=== PATIENT | male | born 1965 | race Caucasian/White ===

== ENCOUNTER 2018-05-20 19:53 | Emergency (ER) | payer BC, OTHER ==
[~2018-05-20] VITALS: Ht 182.9 cm; Wt 108.5 kg
[2018-05-20 19:56] VITALS: TEMP 36.9; Ht 182.9 cm; Wt 108.5 kg
[2018-05-20] MEDS ORDERED: GARL500C5 PO (20:26)
[2018-05-20] MEDS ORDERED: ASCO500T3 PO (20:26)
[2018-05-20] MEDS ORDERED: OMEP20TA PO (20:26)
[2018-05-20] MEDS ORDERED: SEPTRA DS HOME PACK 1 EA VIAL PO ONE (20:45)
[2018-05-20] MEDS ORDERED: LIDOCAINE 1% BUFFERED INJ 20 ML VIAL INFIL ONE (20:45)
[2018-05-20] MEDS ORDERED: CEPHALEXIN 500MG HOME PACK 1 EA BTL PO ONE (20:45)
[2018-05-20] MEDS ORDERED: COEN75CA PO (21:00)
[2018-05-20 21:27] VITALS: BP 161/104; PULSE 86; O2SAT 97
[2018-05-20] MEDS ORDERED: SULF800T23 PO (21:48)
[2018-05-20] MEDS ORDERED: CEPH500C PO (21:48)
--- NOTE | 2018-05-21 00:21 | EMERGENCY ROOM VISIT NOTE ---
History Report prepared by Rebeka: Popeye Jay Under the Supervision of: Dr. Tony Felix M.D. First contact with patient: 20:18 Chief Complaint: OTHER COMPLAINT Stated Complaint: ABSCESS ON UPPER LEG History of Present Illness The patient is a 52 year old male who presents to the Emergency Room with complaints of a constant abscess in his left upper leg starting a couple days ago. He reports a history of infection in that area, but states that this one is deeper than normal. He reports he had a very similar one about 3 years ago and had surgery for it. He states that he feels like there is always something there in his left upper leg. The patient notes a current cold and states that he took 6 DayQuil and 2 Aleve today. He denies fevers or chills, but notes that his vision is "kind of screwed up." The patient states that he does not have any insurance and is requesting to only have the area lanced and given medications. He does not want any imaging or blood work to be performed. He is aware of the limitations with this approach. Pt denies LOC, headache, fevers, chills, diaphoresis, neck pain, chest pain, breathing difficulties, nausea, vomiting, abdominal pain, back pain, melena, hematochezia, urinary symptoms, numbness, weakness, lymphadenopathy, rash, or other complaints. Source of History: patient Onset: a couple days ago Position: leg (left upper) Quality: other (abscess) Timing: constant Note: vision is "kind of screwed up" Review of Systems See HPI for pertinent positives and negatives. A total of ten systems were reviewed and were otherwise negative. Past Medical & Surgical Medical Problems: (1) HTN (hypertension) Family History Diabetes mellitus Heart disease Hypertension Social History Smoking Status: Current Every Day Smoker Alcohol Use: occasionally Marital Status: Housing Status: lives with significant other Occupation Status: employed Current/Historical Medications Scheduled Ascorbic Acid (Vitamin C), 500 MG PO DAILY Cephalexin Monohydrate (Keflex), 500 MG PO QID Coenzyme Q10 (Ubidecarenone) (Co Q-10), 1 CAP PO DAILY Garlic (Garlic), 500 MG PO DAILY Omeprazole (Omeprazole), 20 MG PO DAILY Sulfa/Trimethoprim (Bactrim Ds 800MG/160MG), 1 TAB PO BID Allergies Coded Allergies: No Known Allergies (Unverified , 05/19/14) Physical Exam Vital Signs Date Time Temp Pulse Resp B/P (MAP) Pulse Ox O2 Delivery O2 Flow Rate FiO2 05/20/18 21:27 86 16 161/104 97 Room Air 05/20/18 19:56 36.9 97 18 174/106 97 Room Air Physical Exam GENERAL: Awake, alert, uncomfortable-appearing, in no distress HENT: Normocephalic, atraumatic. Oropharynx unremarkable. EYES: Normal conjunctiva. Sclera non-icteric. NECK: Supple. No nuchal rigidity. FROM. No masses. RESPIRATORY: Clear to auscultation. No wheezes. No rales. Normal respiratory effort. CARDIAC: Normal rate. Normal rhythm. No murmurs. No rubs. Extremities warm and well perfused. Pulses equal. No JVD. GI: Soft, non-distended. No tenderness to palpation. No rebound or guarding. No masses. RECTAL: No perianal abscess is present. No fistula. No fissures or swelling present. MUSCULOSKELETAL: Atraumatic. Chest examination reveals no tenderness. The back is symmetrical on inspection without obvious abnormality. There is no CVA tenderness to palpation. No joint edema. LOWER EXTREMITIES: No edema. No discoloration. Upper leg appears normal. NEURO: Normal sensorium. No sensory or motor deficits noted. SKIN: No other rash or jaundice noted. GENITOURINARY: Scrotum and penis appear normal. 4 x 3 cm area of tenderness, induration, and fluctuance in the perineum with no crepitus. Medical Decision & Procedures Medications Administered Medications (Trade) Dose Ordered Sig/Kadie Route Start Time Stop Time Status Last Admin Dose Admin Cephalexin Monohydrate (Keflex 500MG Home Pack) 1 homepack NOW ONCE PO 05/20/18 20:45 05/20/18 20:46 DC 05/20/18 21:44 1 HOMEPACK Trimethoprim/ Sulfamethoxazole (Sulfameth/ Trimeth Ds 800/ 160MG Home Pack) 1 homepack UD ONCE PO 05/20/18 20:45 05/20/18 20:46 DC 05/20/18 21:44 1 HOMEPACK Lidocaine HCl (Buffered Lidocaine 1% Inj) 20 ml ONE ONCE INFIL 05/20/18 20:45 05/20/18 20:46 DC 05/20/18 20:42 20 ML Procedure INCISION & DRAINAGE: Indication: Abscess. Verbal consent was obtained after the risks and benefits were explained, including but not limited to bleeding, scarring, infection, pain, and bone/joint /nerve damage. At this time, the risks of the procedure are less than the risks of NOT performing the procedure. A time out was taken and the correct patient and site identified. The skin was prepped with betadine and a sterile field set. The wound was anesthetized with 3 ml of 1% lidocaine without epinephrine. The abscess cavity was entered with a number 11 blade and bloody and mild purulent material expressed. Irrigated. The wound was explored for foreign bodies and none found. No injury to underlying structures such as the urethra, scrotum, or rectum. No obvious fistulas. Debridement was not performed. Packing placed and a sterile dressing applied. Detailed wound care instructions and signs and symptoms of worsening infection reviewed with the patient. No complications and the patient tolerated the procedure well. ED Course 2020: The patient was evaluated in room A12B. A complete history and physical exam was performed. 2044: Ordered Lidocaine HCl 20 ml INFIL, Trimethoprim/Sulfamethoxazole 1 homepack PO, Cephalexin Monohydrate 1 homepack PO 2129: I reevaluated the patient. Discussed results and discharge instructions: He verbalized understanding and agreement. The patient is ready for discharge. Medical Decision Prior records reviewed and summarized as above. The patient had a moderate sized abscess of the perineum drained. Culture revealed a Peptostreptococcus species. At that time he was treated with IV Mefoxin and Augmentin. The patient states that this episode is not nearly as significant as that episode. Triage Nursing notes reviewed and agree them. Additional history obtained from the family. The patient's history was concerning for swelling and redness of the perineum. Differential diagnosis: Etiologies such as cellulitis, abscess, MRSA infection, necrotizing fasciitis, dermatitis, as well as others were entertained. Physical examination: The physical examination as above. Small tender fluctuant area. No drainage. No signs of crepitus. Scrotum was not involved. No obvious connection to the rectum or anus. ER treatment provided: On reassessment the patient felt better. Diagnostics interpreted by me: The labs revealed gram-positive cocci and Gram stain. Culture pending. I did discuss the significant importance of a culture of the wound from the procedure and the patient did agree to this. Imaging studies: Declined by the patient. The patient underwent an incision and drainage for a very small abscess of the perineum with some mild surrounding cellulitis. He had a culture performed. The patient was placed on Bactrim and Keflex. He did not want any additional laboratory testing or imaging performed. He understands the risks and benefits to this approach. I will try to respect his wishes and treat him conservatively. He agrees to come back to emergency department immediately if he worsens in any way. He will call back to the emergency department in 72 hours for culture results if he does not hear from us sooner. He had elevated blood pressures. He was counseled on this. He does not follow regularly with a primary physician. He was also counseled on this. He was given information for follow-up by case management for primary care. I gave my usual and customary discussion regarding this issue. By the evaluation outlined above other emergent etiologies such as those listed in the differential, as well as others, were deemed relatively unlikely. The patient was educated about the findings as listed above. All questions were answered and the patient was pleased with the treatment. Return instructions were outlined and the patient was discharged in stable condition. The patient was referred to primary care for follow-up for a recheck of the current condition. Medication Reconcilliation Current Medication List: was personally reviewed by me Blood Pressure Screening Patient's blood pressure: Elevated blood pressure Blood pressure disposition: Referred to PCP Impression Primary Impression: Perineal abscess Scribe Attestation The scribe's documentation has been prepared under my direction and personally reviewed by me in its entirety. I confirm that the note above accurately reflects all work, treatment, procedures, and medical decision making performed by me. Departure Information Dispostion Home / Self-Care Prescriptions Sulfa/Trimethoprim (Bactrim Ds 800MG/160MG) Tab 1 TAB PO BID, #18 TAB Prov: Tony Felix MD 05/20/18 Cephalexin Monohydrate (Keflex) 500 Mg Cap 500 MG PO QID, #36 CAP Prov: Tony Felix MD 05/20/18 Referrals Desi Gomez M.D. (PCP) Forms HOME CARE DOCUMENTATION FORM, IMPORTANT VISIT INFORMATION, WORK / SCHOOL INSTRUCTIONS Patient Instructions My [facility] Additional Instructions Cephalexin(Keflex) 500mg: Take one pill four times daily for 10 days for your skin infection. All antibiotics can cause diarrhea. If this occurs and you feel worse or it does not resolve in 1-2 days follow up with your doctor or return to the Emergency Department as this could be signs of serious underlying problems. Any medication can cause an allergic reaction, stop the pills immediately and return to the ER for rash, hives, breathing difficulties, or swelling. Trimethoprim-Sulfamethoxazole(Bactrim DS): Take one pill twice daily for 10 days for your skin infection. All antibiotics can cause diarrhea. If this occurs and you feel worse or it does not resolve in 1-2 days follow up with your doctor or return to the Emergency Department as this could be signs of serious underlying problems. Any medication can cause an allergic reaction, stop the pills immediately and return to the ER for rash, hives, breathing difficulties, or swelling. Ibuprofen(Motrin, Advil) may be used for fever or pain. Use 600mg every six hours as needed. Take with food. Avoid using more than 2400mg in a 24 hour period. Do not use 2400mg per day for more than three consecutive days without physician direction. Prolonged inappropriate use can lead to stomach upset or ulcers. (AND/OR) Acetaminophen(Tylenol) may be used for fever or pain. Use 1000mg every six hours as needed. Avoid using more than 4000mg in a 24 hour period. Change the dressing tomorrow and remove the packing. If the gauze becomes dirty or wet change as needed. Try to leave the packing in place until tomorrow. The packing can be removed very simply by pulling on the small wick under your scrotum. Rest and drink plenty of fluids. Continue current medications. Return to the ER for severe pain, persistent fevers, spreading redness, difficulty breathing, chest pain, headache, passing out, or any worsening of your condition. Follow up with a primary physician next week for a recheck of the current condition, establishment of primary care, and monitoring of your blood pressure. Call back to the emergency department on Thursday for results of your wound culture. The number is [phone]. Ask for the charge nurse.
== END 2018-05-20 21:55 | disposition home or self-care (01) ==
LOC: C.EDB 19:54 → C.EDA 21:55
DX: L02.215 Cutaneous abscess of perineum (principal); I10 Essential (primary) hypertension; F17.210 Nicotine dependence, cigarettes, uncomplicated; Z83.3 Family history of diabetes mellitus; Z82.49 Family history of ischemic heart disease and other diseases of the circulatory system; Z79.899 Other long term (current) drug therapy

== ENCOUNTER 2023-09-04 22:34 | Inpatient (IN) ==
[2023-09-04] MEDS ORDERED: SODIUM CHLORIDE 0.9% 500 ML IV STA (22:38)
[2023-09-04] MEDS ORDERED: ALUMINUM/MAGNESIUM SUSP 30 ML UDC PO STA (22:42)
--- NOTE | 2023-09-04 22:48 | Emergency Department Note ---
Impression & Plan Acute non-ST elevation myocardial infarction (NSTEMI), Chest pain, Abnormal EKG ED Provider Note NAME: JOSE DEE AGE: 57 SEX: M : 1965 ARRIVES VIA: Ambulance INFORMANT: Patient, EMS ED PROVIDER(S): Hossein Garcia DO CHIEF COMPLAINT: Chest pain HPI: The patient is a 57-year-old male who presented to the emergency department by ambulance for an evaluation of chest discomfort. The patient states he was moving heavy oxygen containers this morning. Around 10:30 AM he started having discomfort in his chest. He has a history of GERD and initially thought it was related to that. He took antacids without relief of his symptoms. This evening his symptoms continue to worsen so he called 911. I did receive a prehospital notification. The patient was treated with aspirin prior to arrival. He denies having any shortness of breath. He denies having any leg swelling. He denies having any back pain. ROS: See above HPI for pertinent positives & negatives. A total of 10 systems reviewed and were otherwise negative. PAST MEDICAL HISTORY: See Below PAST SURGICAL HISTORY: See Below FAMILY HISTORY: See Below SOCIAL HISTORY: See Below HOME MEDICATIONS: See Below ALLERGIES: See Below VITALS: See Below PHYSICAL EXAMINATION: GENERAL: Patient is awake alert in no acute distress patient is resting comfortably and showing no signs of anxiety EYES: The conjunctivae are clear. The pupils are round and reactive. EARS, NOSE, MOUTH AND THROAT: The nose is without any evidence of any deformity. NECK: The neck is nontender and supple. RESPIRATORY: Normal respiratory effort is noted there is no evidence of wheezing rhonchi or rales CARDIOVASCULAR: Regular rate and rhythm noted there no murmurs rubs or gallops normal S1 normal S2. GASTROINTESTINAL: The abdomen is soft. Abdomen is nontender. MUSCULOSKELETAL/EXTREMITIES: There is no evidence of gross deformity full range of motion is noted in the hips and shoulders. SKIN: There is no obvious evidence of any rash. There are no petechiae, pallor or cyanosis noted. NEUROLOGIC: Patient is awake alert and oriented x3. Gait was steady. MEDICAL DECISION MAKING: The patient is a 57-year-old male who presented to the emergency department by ambulance for an evaluation of chest pain. The patient describes anterior chest pain which has been ongoing throughout the day. The patient had no back pain. Pulses were symmetric in both wrist. The patient does have a history of hypertension. Patient also had a history of GERD and thought that this could be secondary to his GERD. He was found to have an abnormal EKG by prehospital personnel. He had no significant change in his EKG upon arrival to the emergency department. He was treated with aspirin prior to arrival. He was also started on heparin in the emergency department for an elevated troponin. The patient was improved on reevaluation. The case was discussed with the [facility] hospitalist. They have agreed to evaluate the patient in the emergency department for further management and disposition. Triage Nursing notes reviewed. Prior medical records reviewed Vital Signs: reviewed and remarkable for elevated blood pressure. Differential diagnosis: Cardiac ischemia, aortic dissection, pulmonary embolism, pneumothorax, pneumonia, pericarditis, myocarditis, esophageal rupture, GERD, cholecystitis, pancreatitis, musculoskeletal, as well as other pathologies. ER treatment provided: See below Diagnostics interpreted by me: ECG: EKG was obtained in the emergency department. My interpretation is normal sinus rhythm at 81 bpm. There is no ectopy. Inferior anterior and low lateral ST depressions were noted. Early transition was noted. No previous tracing was available in our system. Prehospital EKG was obtained. I was able to evaluate the prehospital EKG as I was consulted for medical command. My interpretation is normal sinus rhythm at 88 beats per minute. There is no ectopy. Early transition was noted. ST depressions were noted in the inferior anterior and low lateral leads. This compares similar to the tracing obtained in the emergency department. Cardiac Monitoring: An order was placed for continuous cardiac monitoring. The monitor shows a rate of 87 bpm with sinus rhythm. Laboratory studies: As stated above and show below. Imaging studies: See below. Radiographic imaging was reviewed by myself Consultation(s): Dr Delgadillo was notified about the patient. He will evaluate the patient in the emergency department. ED COURSE: Procedures: none Critical Care: I have personally spent greater than 45 minutes of critical care time in the direct management of this patient. This includes bedside care, interpretation of diagnostic studies, and testing, discussion with consultants, patient, and family members, and other required patient management activities. This 45 minutes is in excess of all separately billable procedures. Past Med/Surg History Medical History HTN (hypertension) Acid reflux Social History Smoking Status: Current every day smoker Tobacco Type: Cigarettes Preferred Language: American Feels Safe at Home: Yes Allergies Allergies Allergy/AdvReac Type Severity Reaction Status Date / Time No Known Allergies Allergy Verified 09/04/23 23:07 Home Meds Home Medications Medication Instructions Recorded Confirmed amlodipine 5 mg tablet 5 mg PO DAILY 09/04/23 09/04/23 ascorbic acid (vitamin C) 500 mg 500 mg PO DAILY 09/04/23 09/04/23 tablet (Vitamin C) biotin 10 mg tablet 10 mg PO DAILY 09/04/23 09/04/23 garlic 1,000 mg capsule 1,000 mg PO DAILY 09/04/23 09/04/23 omeprazole 20 mg capsule,delayed 20 mg PO DAILY 09/04/23 09/04/23 release Results & Data (ED) Vital Signs Vital Signs - 24 hr 09/04/23 22:45 09/04/23 22:50 09/04/23 22:52 Temperature 36.5 C Temperature Source Oral Pulse Rate 87 79 Pulse Rate [Radial] Respiratory Rate 15 Respiratory Effort / Characteristics Non-Labored Spontaneous Respiratory Depth Normal Respiratory Pattern Regular Blood Pressure 170/116 H Blood Pressure [Right Arm] Blood Pressure Mean 134 Blood Pressure Mean [Right Arm] Blood Pressure Position Semi-fowlers Pulse Oximetry 97 94 Oxygen Delivery Method Room Air Room Air Sepsis Recent Fever Within 48 Hours No Sepsis New/Unexplained Change in Mental Status N/A Sepsis Action Taken by Nursing No Action Required 09/04/23 22:52 09/04/23 23:57 Temperature Temperature Source Pulse Rate 80 Pulse Rate [Radial] 87 Respiratory Rate 22 17 Respiratory Effort / Characteristics Non-Labored Spontaneous Respiratory Depth Normal Respiratory Pattern Regular Blood Pressure Blood Pressure [Right Arm] 170/100 H Blood Pressure Mean Blood Pressure Mean [Right Arm] 123 Blood Pressure Position Pulse Oximetry 94 100 Oxygen Delivery Method Room Air Room Air Sepsis Recent Fever Within 48 Hours Sepsis New/Unexplained Change in Mental Status Sepsis Action Taken by Half-Way Medications Current Medication List: was personally reviewed by me Laboratory Data Attestation: I reviewed the patient's lab results. 09/04/23 22:50 09/04/23 22:50 Lab Results 09/04/23 Range/Units 22:50 WBC 10.95 H (4.8-10.8) K/ul RBC 5.41 (4.70-6.10) M/uL Hgb 16.1 (14.0-18.0) g/dl Hct 48.5 (42.0-52.0) % MCV 89.6 (80.0-100.0) fL MCH 29.8 (25.0-34.0) pg MCHC 33.2 (32.0-36.0) g/dL RDW Std Deviation 44.6 (36.4-46.3) fL RDW Coeff of Bhakti 13.7 (11.5-14.5) % Plt Count 257 (130-400) K/uL MPV 9.4 (9.4-12.4) fL Immature Gran % (Auto) 1.1 % Neut % (Auto) 66.5 % Lymph % (Auto) 20.2 % [place] % (Auto) 9.1 % Eos % (Auto) 2.2 % Baso % (Auto) 0.9 % Neut # (Auto) 7.28 H (1.40-6.50) K/uL Lymph # (Auto) 2.21 (1.20-3.40) K/uL [place] # (Auto) 1.00 H (0.11-0.59) K/uL Eos # (Auto) 0.24 (0.00-0.50) K/uL Baso # (Auto) 0.10 (0.00-0.20) K/uL Immature Gran # (Auto) 0.12 (0.01-0.20) K/uL PT 10.4 (9.0-12.0) Seconds INR 0.9 (0.9-1.1) APTT 27.3 (21.0-31.0) Seconds PTT Ratio 1.0 Sodium 140 (136-145) mmol/L Potassium 4.0 (3.5-5.1) mmol/L Chloride 106 (98-107) mmol/L Carbon Dioxide 27 (21-32) mmol/L Anion Gap 7 (3-11) BUN 14 (6-23) mg/dl Creatinine 0.88 (0.6-1.4) mg/dl Est Cr Clr Drug Dosing 119.5 ml/min Est GFR ( Amer) 110.5 ml/min Est GFR (Non-Af Amer) 95.4 ml/min BUN/Creatinine Ratio 15.9 (10-20) Glucose 128 H (70-99(Fasting)) mg/dl Calcium 9.6 (8.6-10.3) mg/dl Total Bilirubin 0.4 (0.2-1.0) mg/dl AST 19 (13-39) U/L ALT 15 (7-52) U/L Alkaline Phosphatase 68 (34-104) U/L Troponin I High Sens 340.5 H* (0-20) pg/ml Total Protein 7.8 (6.0-8.3) gm/dl Albumin 4.4 (3.4-5.0) gm/dl Globulin 3.4 (2.5-4.0) gm/dl Albumin/Globulin Ratio 1.3 (0.9-2) Lipase 50 (11-82) U/L Administered Medications Discontinued Medications Al Hydrox/Mg Hydrox/Simethicone (Aluminum/Magnesium Susp 30 Ml Udc) 30 ml PO NOW STA Stop: 09/04/23 22:43 Last Admin: 09/04/23 22:55 Dose: 30 ml Documented By: Sodium Chloride (Nss) 500 mls @ 999 mls/hr IV .Q31M STA Stop: 09/04/23 23:08 Last Infusion: 09/05/23 00:04 Dose: Infused Documented By: Admin: 09/04/23 22:56 Dose: 999 mls/hr Documented By: Imaging Data Attestation: I personally reviewed and interpreted this imaging study as follows: My Impression: 1 view chest x-ray was obtained in the emergency department. My interpretation is mild cardiomegaly, no free air, no definite infiltrate, final report pending. Discharge Plan Visit Data Chief Complaint: Chest Pain Stated Complaint: CHEST PAIN ED Provider: Hossein Garcia Discharge Problem: Acute non-ST elevation myocardial infarction (NSTEMI), Chest pain, Abnormal EKG Patient Disposition: Being Evaluated by Hospitalist Forms Stand Alone Forms: My [facility] Prescriptions Prescriptions: No Action biotin 10 mg Tablet 10 mg PO DAILY amlodipine 5 mg tablet 5 mg PO DAILY garlic 1,000 mg Capsule 1,000 mg PO DAILY ascorbic acid (vitamin C) [Vitamin C] 500 mg Tablet 500 mg PO DAILY omeprazole 20 mg capsule,delayed release(DR/EC) 20 mg PO DAILY Referrals Referrals: PCP,NO [Physician] - Discharge Problem: Chest pain Qualifiers: Chest pain type: unspecified Qualified Code(s): R07.9 - Chest pain, unspecified
[2023-09-04 23:10] LABS: Basophils % (auto) 0.9 %; Eosinophils # (auto) 0.24 K/uL (0.00-0.50); Eosinophils % (auto) 2.2 %; Hematocrit (blood only) 48.5 % (42.0-52.0); Hemoglobin 16.1 g/dl (14.0-18.0); Immature Granulocytes # (auto) 0.12 K/uL (0.01-0.20); Immature Granulocytes % (auto) 1.1 %; Lymphocytes # (auto) 2.21 K/uL (1.20-3.40); Lymphocytes % (auto) 20.2 %; Mean Corpuscular Hemoglobin 29.8 pg (25.0-34.0); Mean Corpuscular Hgb Conc 33.2 g/dL (32.0-36.0); Mean Corpuscular Volume 89.6 fL (80.0-100.0); Mean Platelet Volume 9.4 fL (9.4-12.4); Monocytes % (auto) 9.1 %; Neutrophils # (auto) 7.28 K/uL (1.40-6.50); Neutrophils % (auto) 66.5 %; Platelet Count 257 K/uL (130-400); RDW Coefficient of Variation 13.7 % (11.5-14.5); RDW Standard Deviation 44.6 fL (36.4-46.3); Red Blood Count 5.41 M/uL (4.70-6.10); White Blood Count 10.95 K/ul (4.8-10.8)
[2023-09-04 23:27] LABS: Albumin Globulin Ratio 1.3 (0.9-2); Albumin Level 4.4 gm/dl (3.4-5.0); BUN Creatinine Ratio 15.9 (10-20); Bilirubin,Total 0.4 mg/dl (0.2-1.0); Calcium 9.6 mg/dl (8.6-10.3); Creatinine Clr Calc Pharmacy 119.5 ml/min; Est GFR (African American) 110.5 ml/min; Est GFR (Non-African American) 95.4 ml/min; Globulin 3.4 gm/dl (2.5-4.0); Total Protein 7.8 gm/dl (6.0-8.3)
[2023-09-04 23:46] LABS: INR 0.9 (0.9-1.1); Partial Thromboplastin Time 27.3 Seconds (21.0-31.0); Prothrombin Time 10.4 Seconds (9.0-12.0)
[2023-09-04] MEDS ORDERED: Heparin IV Adult Wt-Based Standard *NO* Bolus Protocol IV STA (23:55)
[2023-09-04 23:56] LABS: Troponin I High Sensitivity 340.5 pg/ml (0-20)
[2023-09-05] MEDS ORDERED: METOPROLOL TARTRATE 1 MG/ML VIAL IV STA (00:43)
[2023-09-05] MEDS: HEPARIN SODIUM/DEXTROSE 25,000 UNITS/500 ML BAG IV SCH ×2 (00:55→15:48)
[2023-09-05] MEDS ORDERED: ATORVASTATIN 40 MG TAB PO ONE (00:59)
[2023-09-05] MEDS ORDERED: METOPROLOL SUCC 25MG EXT REL TAB PO STA (01:01)
--- NOTE | 2023-09-05 01:03 | History & Physical Report ---
Date of Service September 05, 2023 Assessment & Plan (1) Acute non-ST elevation myocardial infarction (NSTEMI): (2) Abnormal EKG: (3) Chest pain: (4) HTN (hypertension): (5) Acid reflux: Plan Acute NSTEMI/hypertension- The patient will be admitted to telemetry for serial cardiac enzymes, serial EKG's, cardiac rhythm monitoring and a 2-D echocardiogram with Dopplers. Initial troponin 340.5, with follow-up 835.[address] depressions V2 through V6, and leads II, III and aVF Patient did receive aspirin en route to the hospital Continue aspirin 81 mg every morning Heparin drip per protocol Give Lopressor 5 mg IV now, along with metoprolol succinate 25 mg p.o. x 1 Metoprolol succinate 25 mg p.o. every morning Nitropaste 1 inch to anterior chest wall every 6 hours, with first dose now Give atorvastatin 80 mg p.o. now, and then every morning starting 09/06 Check a fasting lipid panel and hemoglobin A1c in a.m. NSS + KCl 20 mEq at 80 mL/h x 1 L Nitroglycerin sublingual 0.4 mg every 5 minutes as needed chest pain per protocol Continue amlodipine 5 mg p.o. every morning Consult cardiology GERD- Change omeprazole to pantoprazole per formulary interchange History of Present Illness Chief Complaint: The patient presents to the emergency department for evaluation of chest discomfort that began around 10:30 AM, after he had been moving some heavy oxygen containers earlier. Primary Care Provider: Agus Qureshi PA-C The patient is a 57-year-old male with a past medical history including hypertension, GERD, perineal abscess and obesity. After developing chest pains symptoms this morning, he thought the symptoms were more likely related to GERD, but as his symptoms persisted without relief with antacids, he called 911. Patient was given aspirin en route to the hospital. Allergies Allergy/AdvReac Type Severity Reaction Status Date / Time No Known Allergies Allergy Verified 09/04/23 23:07 Home Medications Medication Instructions Recorded Confirmed Type amlodipine 5 mg tablet 5 mg PO DAILY 09/04/23 09/04/23 History ascorbic acid (vitamin C) 500 mg 500 mg PO DAILY 09/04/23 09/04/23 History tablet (Vitamin C) biotin 10 mg tablet 10 mg PO DAILY 09/04/23 09/04/23 History garlic 1,000 mg capsule 1,000 mg PO DAILY 09/04/23 09/04/23 History omeprazole 20 mg capsule,delayed 20 mg PO DAILY 09/04/23 09/04/23 History release Past Med/Surg History Medical History HTN (hypertension) Acid reflux Social History Smoking Status: Light tobacco smoker Tobacco Type: Cigarettes and Smokeless Tobacco (Dip or Chew) Second Hand Exposure: No; Do You Dip or Chew Tobacco: Yes; Tobacco Cessation Education Requested by Patient: No Hx Alcohol Use: Yes Alcohol type: beer Hx Substance Use: No Preferred Language: Nepali Communication Ability: Effective 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 Beliefs That Will Affect Care: None Current Living Situation: Spouse Other Information That Helps Us Care for You: No Feels Safe at Home: Yes Safety Concerns: Feels Safe At This Time Assistive Devices: None Review of Systems Review of Systems: The patient denies palpitations, cough, lower extremity swelling, sore throat, f maritza, chills, sweats, nausea, vomiting, diarrhea , constipation, abdominal pain, pelvic pain, blood in urine or stool, dysuria, urinary frequency or urgency, lightheadedness, dizziness, headache, memory loss, loss of consciousness, rash, abnormal bruising or bleeding, imbalance, focal or generalized weakness, numbness or tingling arms or legs, generalized arthralgias or myalgias, back or neck pain, or night sweats. The review of systems is otherwise negative other than for that already noted above, and at least 10 systems have been reviewed. Physical Exam Physical Exam: The patient is awake, alert and oriented 3, well developed and well nourished, normocephalic and atraumatic, lying in bed and in no acute distress. HEENT--PERRL, EOMI, mucous membranes and oropharynx dry. Neck--supple. No JVD. No bruits. Thyroid normal, trachea midline, no adenopathy. Heart--normal S1 and S2. No murmurs, rubs or gallops. Lungs--clear bilaterally, no respiratory distress, no accessory muscle use. Abdomen--normal bowel sounds and soft. Nontender. Nondistended, no hernias or masses, no organomegaly. Extremities--no cyanosis or clubbing. No edema. Dermatologic--normal skin turgor, normal color, no abnormal lymph nodes, no rash. Neurologic--cranial nerves II through XII grossly intact. Rheumatologic--normal range of motion. Psychiatric--normal affect. Results & Data Results & Data Vital Signs (Past 12 Hours) Vital Signs Temp Pulse Pulse Resp BP BP Pulse Ox 09/05/23 00:59 74 17 144/98 H 96 09/05/23 00:51 80 153/116 H 09/04/23 23:57 87 17 170/100 H 100 09/04/23 22:52 80 22 94 09/04/23 22:52 94 09/04/23 22:50 79 09/04/23 22:45 36.5 C 87 15 170/116 H 97 O2 Del Method 09/05/23 00:59 Room Air 09/05/23 00:51 09/04/23 23:57 Room Air 09/04/23 22:52 Room Air 09/04/23 22:52 Room Air 09/04/23 22:50 09/04/23 22:45 Room Air Laboratory Results Laboratory Results WBC 10.95 K/ul (4.8-10.8) H 09/04/23 22:50 RBC 5.41 M/uL (4.70-6.10) 09/04/23 22:50 Hgb 16.1 g/dl (14.0-18.0) 09/04/23 22:50 Hct 48.5 % (42.0-52.0) 09/04/23 22:50 MCV 89.6 fL (80.0-100.0) 09/04/23 22:50 MCH 29.8 pg (25.0-34.0) 09/04/23 22:50 MCHC 33.2 g/dL (32.0-36.0) 09/04/23 22:50 RDW Std Deviation 44.6 fL (36.4-46.3) 09/04/23 22:50 RDW Coeff of Bhakti 13.7 % (11.5-14.5) 09/04/23 22:50 Plt Count 257 K/uL (130-400) 09/04/23 22:50 MPV 9.4 fL (9.4-12.4) 09/04/23 22:50 Immature Gran % (Auto) 1.1 % 09/04/23 22:50 Neut % (Auto) 66.5 % 09/04/23 22:50 Lymph % (Auto) 20.2 % 09/04/23 22:50 Mclean % (Auto) 9.1 % 09/04/23 22:50 Eos % (Auto) 2.2 % 09/04/23 22:50 Baso % (Auto) 0.9 % 09/04/23 22:50 Neut # (Auto) 7.28 K/uL (1.40-6.50) H 09/04/23 22:50 Lymph # (Auto) 2.21 K/uL (1.20-3.40) 09/04/23 22:50 Mclean # (Auto) 1.00 K/uL (0.11-0.59) H 09/04/23 22:50 Eos # (Auto) 0.24 K/uL (0.00-0.50) 09/04/23 22:50 Baso # (Auto) 0.10 K/uL (0.00-0.20) 09/04/23 22:50 Immature Gran # (Auto) 0.12 K/uL (0.01-0.20) 09/04/23 22:50 PT 10.4 Seconds (9.0-12.0) 09/04/23 22:50 INR 0.9 (0.9-1.1) 09/04/23 22:50 APTT 27.3 Seconds (21.0-31.0) 09/04/23 22:50 PTT Ratio 1.0 09/04/23 22:50 Sodium 140 mmol/L (136-145) 09/04/23 22:50 Potassium 4.0 mmol/L (3.5-5.1) 09/04/23 22:50 Chloride 106 mmol/L (98-107) 09/04/23 22:50 Carbon Dioxide 27 mmol/L (21-32) 09/04/23 22:50 Anion Gap 7 (3-11) 09/04/23 22:50 BUN 14 mg/dl (6-23) 09/04/23 22:50 Creatinine 0.88 mg/dl (0.6-1.4) 09/04/23 22:50 Est Cr Clr Drug Dosing 119.5 ml/min 09/04/23 22:50 Est GFR ( Amer) 110.5 ml/min 09/04/23 22:50 Est GFR (Non-Af Amer) 95.4 ml/min 09/04/23 22:50 BUN/Creatinine Ratio 15.9 (10-20) 09/04/23 22:50 Glucose 128 mg/dl (70-99(Fasting)) H 09/04/23 22:50 Calcium 9.6 mg/dl (8.6-10.3) 09/04/23 22:50 Total Bilirubin 0.4 mg/dl (0.2-1.0) 09/04/23 22:50 AST 19 U/L (13-39) 09/04/23 22:50 ALT 15 U/L (7-52) 09/04/23 22:50 Alkaline Phosphatase 68 U/L (34-104) 09/04/23 22:50 Troponin I High Sens 835.3 pg/ml (0-20) H * D 09/05/23 00:49 Total Protein 7.8 gm/dl (6.0-8.3) 09/04/23 22:50 Albumin 4.4 gm/dl (3.4-5.0) 09/04/23 22:50 Globulin 3.4 gm/dl (2.5-4.0) 09/04/23 22:50 Albumin/Globulin Ratio 1.3 (0.9-2) 09/04/23 22:50 Lipase 50 U/L (11-82) 09/04/23 22:50 Code Status & VTE Plan Code Status Full code VTE Prophylaxis Plan VTE Prophylaxis will be ordered: Yes PG Care Time/CCT Total # of Minutes Spent Total Time Spent with Patient: Total time spent is greater than 50% in coordination of care (as documented) at patient's floor/unit and/or counseling patient: Coding Level of Care Code 04971 INT INP/OBS CARE 3/75MIN Diagnoses Acute non-ST elevation myocardial infarction (NSTEMI) I21.4 Abnormal EKG R94.31 Chest pain R07.9 Chest pain type: unspecified HTN (hypertension) I10 Acid reflux K21.9 (3) Chest pain Chest pain type: unspecified Qualified Code(s): R07.9 - Chest pain, unspecified
[2023-09-05] MEDS ORDERED: NITROGLYCERIN 2% OINTMENT 30GM TUBE EXT ONE (01:20)
[2023-09-05] MEDS ORDERED: NITROGLYCERIN SL 0.4 MG/TAB TAB SL PRN (03:01)
[2023-09-05] MEDS ORDERED: ONDANSETRON INJ 2 MG/ML 2 ML VIAL IV PRN (03:01)
[2023-09-05] MEDS ORDERED: NSS + 20MEQ KCL 20 MEQ/1,000 ML BAG IV SCH (03:01)
[2023-09-05] MEDS ORDERED: ACETAMINOPHEN 325 MG TAB PO PRN (03:01)
[2023-09-05] MEDS ORDERED: NITROGLYCERIN 2% OINTMENT 30GM TUBE EXT SCH (04:30)
[2023-09-05 07:28] LABS: Basophils # (auto) 0.08 K/uL (0.00-0.20); Basophils % (auto) 0.7 %; Eosinophils # (auto) 0.17 K/uL (0.00-0.50); Eosinophils % (auto) 1.5 %; Hemoglobin 14.6 g/dl (14.0-18.0); Immature Granulocytes # (auto) 0.07 K/uL (0.01-0.20); Immature Granulocytes % (auto) 0.6 %; Lymphocytes % (auto) 18.3 %; Mean Corpuscular Volume 88.5 fL (80.0-100.0); Mean Platelet Volume 9.5 fL (9.4-12.4); Monocytes # (auto) 1.07 K/uL (0.11-0.59); Monocytes % (auto) 9.3 %; Neutrophils # (auto) 7.97 K/uL (1.40-6.50); Neutrophils % (auto) 69.6 %; Platelet Count 250 K/uL (130-400); RDW Coefficient of Variation 13.5 % (11.5-14.5); RDW Standard Deviation 43.8 fL (36.4-46.3); Red Blood Count 4.86 M/uL (4.70-6.10); White Blood Count 11.46 K/ul (4.8-10.8)
--- NOTE | 2023-09-05 07:49 | XRay Report ---
XR chest 1V portable HISTORY: Chest pain, nonspecific COMPARISON: None. FINDINGS: No pneumothorax. No pleural effusions. The cardiac silhouette is borderline enlarged. No fo clementina lung consolidations to suggest pneumonia. No evidence for pulmonary edema. IMPRESSION: Borderline cardiomegaly. Otherwise, no acute process within the chest. ACT 112: Negative or not required by law. Electronically signed by: Girma Huitron M.D. 09/05/2023 7:48 AM
[2023-09-05 07:53] LABS: Partial Thromboplastin Ratio 1.4; Partial Thromboplastin Time 38.4 Seconds (21.0-31.0)
[2023-09-05] MEDS: METOPROLOL SUCC 25MG EXT REL TAB PO SCH (08:01)
[2023-09-05] MEDS: ASCORBIC ACID 500 MG TAB PO SCH (08:01)
[2023-09-05] MEDS: ASPIRIN 81 MG ECTAB PO SCH (08:01)
[2023-09-05] MEDS: amLODIPine BESYLATE 5 MG TAB PO SCH (08:01)
[2023-09-05] MEDS: PANTOprazole 40 MG TAB PO SCH (08:01)
[2023-09-05 08:23] LABS: Estimated Average Glucose 126 mg/dl
[2023-09-05] MEDS ORDERED: Nursing to Pharmacy Communication SCH (08:30)
--- NOTE | 2023-09-05 08:31 | Electrocardiogram Report ---
Test Reason : Blood Pressure : / mmHG Vent. Rate : 081 BPM Atrial Rate : 081 BPM P-R Int : 150 ms QRS Dur : 086 ms QT Int : 378 ms P-R-T Axes : 038 008 -11 degrees QTc Int : 439 ms Normal sinus rhythm Anterior ST depression, consider subendocardial injury Nonspecific ST abnormality Inferior leads Abnormal ECG No previous ECGs available Confirmed by Arthur Millard ([id number]) on 09/05/2023 8:31:04 AM Referred By: REFERRED SELF Confirmed By:Arthur Millard
[2023-09-05] MEDS ORDERED: NON-FORMULARY MEDICATION (Biotin 10 mg Tablet) PO SCH (09:00)
--- NOTE | 2023-09-05 11:26 | Cardiology Consultation ---
Date of Consultation September 05, 2023 Assessment & Plan (1) Acute non-ST elevation myocardial infarction (NSTEMI): Prolonged chest pain, ECG changes, rising troponin, and focal wall motion abnormality are consistent with non-ST elevation myocardial infarction. No chest pain currently, suggesting either completion of infarction or regained patency of the culprit vessel. Agree with IV heparin followed by elective cardiac catheterization to delineate coronary anatomy and assess role of revascularization. Would discontinue nitroglycerin given headache and absence of ongoing chest discomfort. Continue aspirin, statin, and beta-vernon. Given focal wall motion abnormality and high likelihood of revascularization, recommend addition of ticagrelor 180 mg loading dose followed by 90 mg twice daily. Plan for elective cardiac catheterization on Thursday, sooner if symptoms recur. (2) HTN (hypertension): Continue amlodipine, could use IV hydralazine or oral clonidine if any further acute BP spikes. History of Present Illness Reason for Consultation: NSTEMI abnormal ECG Requesting Physician: Dane Lane MD Attending Physician: Dane Lane MD History of Present Illness 57-year-old man with history of GERD and vascular risk factors (HTN, mild tobacco use, dyslipidemia, obesity) but no prior cardiac history who was admitted last evening after noting day-long chest discomfort and reporting to the ER where ECG showed anterolateral ST depression and troponin was elevated and rising, consistent with non-ST elevation myocardial infarction. He notes that he has had chest discomfort off and on for some time which he interpreted as indigestion. Yesterday morning during physical activity the discomfort increased and persisted to the point that he had difficulty lying down last evening and presented to the ER. Several hours after admission and treatment with metoprolol, nitrates, and IV heparin his pain dissipated. Currently, he notes only a moderate headache but has no further chest discomfort. Troponin was initially 340 but increased to 835 and then 7526. No dyspnea, diaphoresis, palpitations, presyncope, or syncope. No orthopnea, PND, or leg edema. Echocardiogram shows focal wall motion abnormality (anterolateral/lateral campbell) with moderately reduced systolic function (EF 40-45%). At the time of my evaluation this morning, he had a mild to moderate headache but no other somatic complaints Allergies Allergy/AdvReac Type Severity Reaction Status Date / Time No Known Allergies Allergy Verified 09/04/23 23:07 Home Medications Medication Instructions Recorded Confirmed Type amlodipine 5 mg tablet 5 mg PO DAILY 09/04/23 09/04/23 History ascorbic acid (vitamin C) 500 mg 500 mg PO DAILY 09/04/23 09/04/23 History tablet (Vitamin C) biotin 10 mg tablet 10 mg PO DAILY 09/04/23 09/04/23 History garlic 1,000 mg capsule 1,000 mg PO DAILY 09/04/23 09/04/23 History omeprazole 20 mg capsule,delayed 20 mg PO DAILY 09/04/23 09/04/23 History release Patient History Medical History (Updated 09/05/23 @ 11:12 by Arthur Millard MD) Perineal abscess HTN (hypertension) Acid reflux Social History Smoking Status: Light tobacco smoker Tobacco Type: Cigarettes and Smokeless Tobacco (Dip or Chew) Second Hand Exposure: No; Do You Dip or Chew Tobacco: Yes; Tobacco Cessation Education Requested by Patient: No Hx Alcohol Use: Yes Alcohol type: beer Hx Substance Use: No Preferred Language: Kiswahili Communication Ability: Effective 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 BP mildly hypertensive. Pulse 68 bpm and regular without ectopy. Skin: no ecchymoses or generalized lesions. HEENT: unremarkable. Neck: JVP at the clavicle at 90 degrees, no carotid bruits. Lungs: clear bilaterally. Cardiac: regular rhythm, normal S1-2, no murmur. Abdomen: benign. Extremities: no edema, pulses intact. Neurologic: normal affect and conversation, nonfocal. Results & Data Laboratory Results Troponins as noted in HPI. Normal electrolytes, BUN 14, creatinine 0.88. WBC 11.46, normal hemoglobin and platelet count. Diagnostic Findings ECG on admission showed sinus rhythm with anterior ST depression suggesting subendocardial injury and nonspecific ST depression in the inferior leads as well. No prior ECG for comparison. Chest x-ray showed borderline cardiomegaly, otherwise unremarkable. Echocardiogram showed borderline dilated left ventricle with moderately reduced systolic function (EF 40 to 45%), severe hypokinesis of the mid to distal lateral/anterolateral campbell and lateral apex, mild LVH with diastolic dysfunction, mild AI. PG Care Time/CCT Total # of Minutes Spent Total Time Spent with Patient: Total time spent is greater than 50% in coordination of care (as documented) at patient's floor/unit and/or counseling patient: Coding Level of Care Code 63119 IN/OBS CONSULT LVL 4,60M Diagnoses Acute non-ST elevation myocardial infarction (NSTEMI) I21.4 HTN (hypertension) I10
--- NOTE | 2023-09-05 11:40 | XCELERA ---
[id number]\[id number]
[2023-09-05] MEDS ORDERED: TICAGRELOR 90 MG TAB PO ONE (11:50)
[2023-09-05] MEDS ORDERED: hydrALAZINE HCL 20 MG/ML VIAL IV PRN (12:09)
--- NOTE | 2023-09-05 12:09 | Hospitalist Progress Note ---
Date of Service September 05, 2023 Assessment & Plan (1) Acute non-ST elevation myocardial infarction (NSTEMI): (2) Abnormal EKG: (3) Chest pain: (4) HTN (hypertension): (5) Acid reflux: Plan Acute NSTEMI/hypertension: Initial troponin 340.5, with follow-up 835.[address] depressions V2 through V6, and leads II, III and aVF Patient did receive aspirin en route to the hospital 2 D Echocardiogram shows focal wall motion abnormality (anterolateral/lateral campbell) with moderately reduced systolic function (EF 40-45%). Started on Ticagrelor 180mg loading dose and then subsequently 90mb BID Plan is for cardiac cath, hopefully on Thursday Heparin drip per protocol Appreciate cardiology HTN: BP is under fair control Continue Amlodipine Add PO Hydralazine if necessary GERD- Change omeprazole to pantoprazole per formulary interchange Admission and Anticipated Discharge Date Admission Date: September 05, 2023 Subjective patient seen and examined, complains of headache, denies chest pain Review of Systems Review of Systems: All systems reviewed are negative, apart from the ones contained in the history. Physical Exam Physical Exam: The patient is awake, alert and oriented 3, well developed and well nourished, normocephalic and atraumatic, lying in bed and in no acute distress. HEENT--PERRL, EOMI, mucous membranes and oropharynx mildly dry Neck--supple. No JVD. No bruits. Thyroid normal, trachea midline, no adenopathy. Heart--normal S1 and S2. No murmurs, rubs or gallops. Lungs--clear bilaterally, no respiratory distress, no accessory muscle use. Abdomen--normal bowel sounds and soft. Mild epigastric and left sided abdominal pain Extremities--no cyanosis or clubbing. No edema. Dermatologic--normal skin turgor, normal color, no abnormal lymph nodes, no rash. Neurologic--cranial nerves II through XII grossly intact. Rheumatologic--normal range of motion. Psychiatric--normal affect. Results & Data Results & Data Vital Signs (Past 12 Hours) Vital Signs Temp Pulse Pulse Resp BP BP Pulse Ox 09/05/23 07:45 97.9 F 68 22 144/87 H 94 09/05/23 03:00 97.7 F 81 20 158/99 H 96 09/05/23 03:00 81 09/05/23 01:44 85 17 95 09/05/23 01:40 134/87 09/05/23 01:40 78 18 94 09/05/23 01:30 73 17 93 09/05/23 01:05 74 144/98 H 09/05/23 01:00 73 22 96 09/05/23 00:59 71 16 93 09/05/23 00:59 144/98 H 09/05/23 00:59 74 17 144/98 H 96 09/05/23 00:54 75 15 96 09/05/23 00:54 152/101 H 09/05/23 00:51 80 153/116 H 09/05/23 00:50 153/116 H 09/05/23 00:50 96 O2 Del Method 09/05/23 07:45 Room Air 09/05/23 03:00 Room Air 09/05/23 03:00 09/05/23 01:44 09/05/23 01:40 09/05/23 01:40 09/05/23 01:30 09/05/23 01:05 09/05/23 01:00 09/05/23 00:59 09/05/23 00:59 09/05/23 00:59 Room Air 09/05/23 00:54 09/05/23 00:54 09/05/23 00:51 09/05/23 00:50 09/05/23 00:50 PG Care Time/CCT Total # of Minutes Spent Total Time Spent with Patient: Total time spent is greater than 50% in coordination of care (as documented) at patient's floor/unit and/or counseling patient: Coding Level of Care Code 42337 SUB INP/OBS CARE 2/35MIN Diagnoses Acute non-ST elevation myocardial infarction (NSTEMI) I21.4 Abnormal EKG R94.31 Chest pain R07.9 Chest pain type: unspecified HTN (hypertension) I10 Acid reflux K21.9 Time Spent (min) 35 (3) Chest pain Chest pain type: unspecified Qualified Code(s): R07.9 - Chest pain, unspecified
[2023-09-05 14:59] LABS: Partial Thromboplastin Ratio 1.5
[2023-09-05 15:02] LABS: Partial Thromboplastin Time 41.3 Seconds (21.0-31.0)
[2023-09-06 06:19] LABS: Basophils # (auto) 0.06 K/uL (0.00-0.20); Basophils % (auto) 0.5 %; Eosinophils # (auto) 0.17 K/uL (0.00-0.50); Eosinophils % (auto) 1.4 %; Hematocrit (blood only) 45.1 % (42.0-52.0); Hemoglobin 15.2 g/dl (14.0-18.0); Immature Granulocytes # (auto) 0.15 K/uL (0.01-0.20); Immature Granulocytes % (auto) 1.2 %; Lymphocytes # (auto) 2.23 K/uL (1.20-3.40); Lymphocytes % (auto) 18.1 %; Mean Corpuscular Hgb Conc 33.7 g/dL (32.0-36.0); Mean Corpuscular Volume 89.1 fL (80.0-100.0); Monocytes # (auto) 1.54 K/uL (0.11-0.59); Monocytes % (auto) 12.5 %; Neutrophils # (auto) 8.14 K/uL (1.40-6.50); Neutrophils % (auto) 66.3 %; Platelet Count 220 K/uL (130-400); RDW Coefficient of Variation 13.7 % (11.5-14.5); RDW Standard Deviation 44.2 fL (36.4-46.3); Red Blood Count 5.06 M/uL (4.70-6.10); White Blood Count 12.29 K/ul (4.8-10.8)
[2023-09-06 06:37] LABS: BUN Creatinine Ratio 12.5 (10-20); Calcium 9.1 mg/dl (8.6-10.3); Creatinine Clr Calc Pharmacy 127.7 ml/min; Est GFR (African American) 114.9 ml/min; Est GFR (Non-African American) 99.2 ml/min; Magnesium 1.9 mg/dl (1.7-2.4)
[2023-09-06] MEDS: HEPARIN SODIUM/DEXTROSE 25,000 UNITS/500 ML BAG IV SCH (06:37)
[2023-09-06 07:01] LABS: Partial Thromboplastin Ratio 1.6
[2023-09-06] MEDS: PANTOprazole 40 MG TAB PO SCH (08:53)
[2023-09-06] MEDS: ASCORBIC ACID 500 MG TAB PO SCH (08:53)
[2023-09-06] MEDS: amLODIPine BESYLATE 5 MG TAB PO SCH (08:53)
[2023-09-06] MEDS: ASPIRIN 81 MG ECTAB PO SCH (08:53)
[2023-09-06] MEDS: METOPROLOL SUCC 25MG EXT REL TAB PO SCH (08:53)
[2023-09-06] MEDS: ATORVASTATIN 40 MG TAB PO SCH (08:53)
[2023-09-06] MEDS: TICAGRELOR 90 MG TAB PO SCH ×2 (08:59→21:13)
--- NOTE | 2023-09-06 10:39 | Hospitalist Progress Note ---
Date of Service September 06, 2023 Assessment & Plan (1) Acute non-ST elevation myocardial infarction (NSTEMI): (2) Abnormal EKG: (3) Chest pain: (4) HTN (hypertension): (5) Acid reflux: Plan Acute NSTEMI/hypertension: Trop still trending up EKG with ST depressions V2 through V6, and leads II, III and aVF Patient did receive aspirin en route to the hospital 2 D Echocardiogram shows focal wall motion abnormality (anterolateral/lateral campbell) with moderately reduced systolic function (EF 40-45%). Started on Ticagrelor 180mg loading dose and then subsequently 90mb BID Plan is for cardiac cath, hopefully on Thursday Heparin drip per protocol Appreciate cardiology HTN: BP is under fair control Continue Amlodipine Add PO Hydralazine if necessary GERD- Change omeprazole to pantoprazole per formulary interchange Admission and Anticipated Discharge Date Admission Date: September 05, 2023 Subjective patient seen and examined,no new complaints, denies chest pain, awaiting cath on thursday Review of Systems Review of Systems: All systems reviewed are negative, apart from the ones contained in the history. Physical Exam Physical Exam: The patient is awake, alert and oriented 3, well developed and well nourished, normocephalic and atraumatic, lying in bed and in no acute distress. HEENT--PERRL, EOMI, mucous membranes and oropharynx mildly dry Neck--supple. No JVD. No bruits. Thyroid normal, trachea midline, no adenopathy. Heart--normal S1 and S2. No murmurs, rubs or gallops. Lungs--clear bilaterally, no respiratory distress, no accessory muscle use. Abdomen--normal bowel sounds and soft. Mild epigastric and left sided abdominal pain Extremities--no cyanosis or clubbing. No edema. Dermatologic--normal skin turgor, normal color, no abnormal lymph nodes, no rash. Neurologic--cranial nerves II through XII grossly intact. Rheumatologic--normal range of motion. Psychiatric--normal affect. Results & Data Results & Data Vital Signs (Past 12 Hours) Vital Signs Temp Pulse Pulse Resp BP Pulse Ox O2 Del Method 09/06/23 08:21 98.2 F 90 21 124/85 95 Room Air 09/06/23 07:01 75 09/06/23 03:12 98.8 F 77 16 126/77 97 Room Air PG Care Time/CCT Total # of Minutes Spent Total Time Spent with Patient: Total time spent is greater than 50% in coordination of care (as documented) at patient's floor/unit and/or counseling patient: Coding Level of Care Code 59982 SUB INP/OBS CARE 2/35MIN Diagnoses Acute non-ST elevation myocardial infarction (NSTEMI) I21.4 Abnormal EKG R94.31 Chest pain R07.9 Chest pain type: unspecified HTN (hypertension) I10 Acid reflux K21.9 Time Spent (min) 35 (3) Chest pain Chest pain type: unspecified Qualified Code(s): R07.9 - Chest pain, unspecified
--- NOTE | 2023-09-06 10:47 | Cardiology Progress Note ---
Date of Service September 06, 2023 Assessment & Plan (1) Acute lateral myocardial infarction: Plan: Presentation and echo findings consistent with lateral wall myocardial infarction. Uncomplicated course thus far, no evidence of ongoing myocardial ischemia, dysrh ythmia, or congestive heart failure. On aspirin and ticagrelor (received loading dose yesterday). On intravenous heparin. On atorvastatin and metoprolol. Plan for cardiac catheterization tomorrow, sooner if symptoms recur. (2) HTN (hypertension): Plan: Continue amlodipine, could use IV hydralazine or oral clonidine if any further acute BP spikes. Admission and Anticipated Discharge Date Admission Date: September 05, 2023 Subjective Uneventful night. No chest pain yesterday or today. Headache resolved off nitrates. No complaints currently. Telemetry showed sinus rhythm in the 70-90 bpm range without ectopy or dysrhythmias. Physical Exam Physical Exam: No distress. BP normotensive. Pulse 90 bpm and regular without ectopy. Skin: no ecchymoses or generalized lesions. HEENT: unremarkable. Neck: JVP at the clavicle at 90 degrees, no carotid bruits. Lungs: clear bilaterally. Cardiac: regular rhythm, normal S1-2, no murmur. Abdomen: benign. Extremities: no edema, pulses intact. Neurologic: normal affect and conversation, nonfocal. Results & Data Vital Signs (Past 12 Hours) Vital Signs Temp Pulse Pulse Resp BP Pulse Ox O2 Del Method 09/06/23 08:21 98.2 F 90 21 124/85 95 Room Air 09/06/23 07:01 75 09/06/23 03:12 98.8 F 77 16 126/77 97 Room Air Laboratory Results Troponin values 340, 835, 7526, 20,009, 21,596. Normal electrolytes, BUN 10, creatinine 0.8. PTT 45 seconds. WBC 12.29, hemoglobin 15.2. PG Care Time/CCT Total # of Minutes Spent Total Time Spent with Patient: Total time spent is greater than 50% in coordination of care (as documented) at patient's floor/unit and/or counseling patient: Coding Level of Care Code 48918 SUB INP/OBS CARE 3/50MIN Diagnoses Acute lateral myocardial infarction I21.29 HTN (hypertension) I10
[2023-09-06] MEDS ORDERED: niCARdipine HCL INJ 2.5 MG/ML 10 ML AMP ONE (11:09)
[2023-09-06] MEDS ORDERED: HEPARIN (PORCINE) 1000 UNIT/ML 10 ML (CATH LAB USE ONLY) ONE (11:09)
[2023-09-06] MEDS ORDERED: fentaNYL citrate PF 100 MCG/2 ML VIAL ONE (11:09)
[2023-09-06] MEDS ORDERED: MIDAZOLAM HCL 1 MG/ML 2ML VIAL ONE (11:10)
[2023-09-06] MEDS ORDERED: NITROGLYCERIN/D5W 100MCG/ML 20ML SYR ONE (11:10)
[2023-09-06] MEDS ORDERED: OPTIRAY 350 ONE (11:18)
--- NOTE | 2023-09-06 11:26 | Pre Anesthesia Assessment ---
Date of Service September 06, 2023 Pre Sedation Assessment Vital Signs Temp Pulse Pulse Resp BP BP Pulse Ox 09/06/23 08:21 98.2 F 90 21 124/85 95 09/06/23 07:01 75 09/06/23 03:12 98.8 F 77 16 126/77 97 09/05/23 22:25 99.0 F 81 18 141/87 H 95 09/05/23 22:07 81 09/05/23 19:07 98.1 F 80 18 137/96 98 09/05/23 15:36 98.4 F 92 H 18 135/80 97 09/05/23 15:32 72 O2 Del Method 09/06/23 08:21 Room Air 09/06/23 07:01 09/06/23 03:12 Room Air 09/05/23 22:25 Room Air 09/05/23 22:07 09/05/23 19:07 Room Air 09/05/23 15:36 Room Air 09/05/23 15:32 Cardiovascular + regular rate Respiratory + respiratory effort normal Pre-Sedation Airway Assessment Smoking Status: Light tobacco smoker Hx Sleep Apnea: No Hx Difficult Intubation: No Short, Thick Neck: No Thyromental Distance: > or= 3.5 Finger Breadths Oral Cavity: + Dental Abnormalities Mallampati Class: III ASA: ASA3 Procedure Planning Contraindications for Sedation: none Current Medications Reviewed: Yes Notes The planned sedation has been discussed with the patient. Informed Consent was obtained. I have identified the patient, determined the appropriateness of sedation and have assessed the patient immediately prior to the procedure. All medicine(s) and interventions are by my order.
--- NOTE | 2023-09-06 12:06 | Post Anesthesia Assessment ---
Date of Service September 06, 2023 Post Sedation Assessment Vital Signs Temp Pulse Pulse Resp BP BP Pulse Ox 09/06/23 08:21 98.2 F 90 21 124/85 95 09/06/23 07:01 75 09/06/23 03:12 98.8 F 77 16 126/77 97 09/05/23 22:25 99.0 F 81 18 141/87 H 95 09/05/23 22:07 81 09/05/23 19:07 98.1 F 80 18 137/96 98 09/05/23 15:36 98.4 F 92 H 18 135/80 97 09/05/23 15:32 72 O2 Del Method 09/06/23 08:21 Room Air 09/06/23 07:01 09/06/23 03:12 Room Air 09/05/23 22:25 Room Air 09/05/23 22:07 09/05/23 19:07 Room Air 09/05/23 15:36 Room Air 09/05/23 15:32 Recovery Score Activity: Moves 4 extremities Respiration: Deep Breath/Cough Circulation: +/-20% PreAnes Value Consciousness: Fully Awake Oxygen Saturation: O2 needed for >90% Discharge Sedation Level of Care: Fast Track Phase II Post Sedation Plan On clinical assessment, the patient appears to have tolerated the sedation without complications. Patient is recovering as anticipated. Patient will continue to be monitored by nursing and may be discharged when sedation discharge criteria are met per below protocol. Upon Completions of procedure up to 15 minutes continue every 5 minute vital signs and the P.A.R. score; then discharge to a Phase I or Fast Track to Phase II per the following guidelines: * Discharge Patient to appropriate Phase II area if PAR is 8 or greater or return to pre- procedure baseline. The post - procedure orders will be as directed. * If PAR score is less than 8 or not return to pre-procedure baseline then patient will follow Phase I monitoring till PAR is reached for Phase II. The Phase I may be done in procedure room or may call to secure a Phase I area. * If naloxone or flumazenil are used for reversal, hold in Phase I for continued monitoring from when last reversal dose was given for a minimum of 60 minutes or longer pending the nurse and/or physician discretion of patient condition before discharge to Phase II. Please call the Sedation Physician to re-evaluate and complete post-note for discharge to Phase II area. Do NOT discharge from procedure sedation or Phase 1 until post- sedation evaluation note is complete by procedure /sedation MD Sedation Discharge Instructions to be given to the patient at discharge to home.
--- NOTE | 2023-09-06 12:14 | Cardiac Catheterization ---
[facility] Data: [place] [facility] Cardiac Status Clinical evaluation leading to the procedure CAD Presenation: Non STEMI Anginal Classification: CCS IV Diagnostic Physicians Name: Bowen Donaldson MD Closure Device Recommendations: PCI without planned CABG Cardiac Cath Procedure Full Procedure Date September 06, 2023 Pre-Procedure Diagnosis Pre-Procedure Diagnosis: Non STEMI AUC Score AUC Score: 8 Post-Procedure Diagnosis Post-Procedure Diagnosis: Severe CAD, Successful PCI and Normal Intracardiac Pressures Procedure(s) Performed Procedure(s) Performed: Coronary Angiography, Left Heart Cath and Drug Eluting Stent Assurance Analyst Bowen Donaldson MD Sampler Radioactive Waste(s) Endoscopy Rn Estimated Blood Loss Estimated Blood Loss: 15 Medication(s) Medication(s): Fentanyl, Heparin, Lidocaine 1%, Nicardipine, Nitroglycerin and Versed Summary of Findings Indication: High risk NSTEMI Access: 6 Fr right radial artery Catheters: [place], EBU 3.5 guide Findings: LM -normal caliber, no significant disease LAD -large caliber 30% proximal followed by mildly ectatic segment, mid segment with luminal irregularities, distal vessel without significant disease and extends around apex. Medium D2 without significant disease. Circumflex -small to medium caliber, midsegment luminal irregularities, 30% stenosis in small distal vessel after OM 2. High large OM1 with 98% hazy proximal stenosis. Medium OM 2 without significant disease. RCA -dominant, large caliber, 30 to 40% mid segment stenosis, distal luminal regularities. Medium PDA and large posterior AV branch/PLB without significant disease. LVEDP -6 -- PCI -- Antithrombotic therapy: Heparin, ticagrelor Procedure: Left main cannulated with EBU 3.5 guide Pre-procedure flow ORESTES 3 BMW wire passed across lesion into distal vessel Proximal OM1 lesion predilated with 2.5 compliant balloon Dilated lesion stented with 2.75 x 15 mm Xience drug-eluting stent Stent post-dilated with 2.75 noncompliant balloon IC vasodilators administered for spasm Post procedure ORESTES 3 flow, stent well expanded with minimal residual stenosis and no apparent cardiac complications. Arterial Closure: TR band Summary: 1. Severe single vessel coronary artery disease -Acute 98% proximal high OM1 30 to 40% mid RCA 30% proximal LAD 2. Normal intracardiac filling pressure 3. Successful PCI of proximal OM1 with single drug-eluting stent (2.75 x 15 mm Xience). Recommendations: To PCU for continued monitoring Previously loaded with ticagrelor Continue dual-antiplatelet therapy for at least 1 year Continue statin, and ASCVD risk factor modification Consult cardiac Rehab Hemodynamics Rest Ao:: 105/77/100 Final Ao: 114/75/92 LV: 108/6 Recommendations Recommendations: PCI without planned CABG Specimens Specimens: None Radiation Exposure (mGy) 2255 Contrast (mls) 140 Anesthesia Moderate 6314-1911 Procedural Complication(s) None Disposition PCU I attest to the content of the Intraoperative Record and any orders documented therein. Any exceptions are noted below. [facility] Card Cath Procedure Codes Cardiac Catheterization Procedure 1: Cardiovascular Cath Procedures: 67799 Coronaries and LHC (+/-LV) Moderate Sedation Procedure 1: Sedation/Anesthesia: 94845 Mod Sedation by the same physician;Init15 Min Child Age 5 & Up Procedure 2: Sedation/Anesthesia: 27231 Mod Sedation by the same physician; Ea [id number] Minutes Stenting Procedure 1: Cardiovascular Stent Procedures: 76781 Perc transcatheter placement of intracoronary stent(s), with ang PG Care Time/CCT Total # of Minutes Spent Total Time Spent with Patient: Total time spent is greater than 50% in coordination of care (as documented) at patient's floor/unit and/or counseling patient:
[2023-09-06] MEDS ORDERED: SODIUM CHLORIDE 0.9% 1,000 ML IV SCH (12:30)
[2023-09-07 06:46] LABS: Basophils # (auto) 0.05 K/uL (0.00-0.20); Basophils % (auto) 0.4 %; Eosinophils # (auto) 0.16 K/uL (0.00-0.50); Eosinophils % (auto) 1.3 %; Hematocrit (blood only) 46.5 % (42.0-52.0); Hemoglobin 15.2 g/dl (14.0-18.0); Immature Granulocytes # (auto) 0.14 K/uL (0.01-0.20); Immature Granulocytes % (auto) 1.2 %; Lymphocytes # (auto) 1.76 K/uL (1.20-3.40); Lymphocytes % (auto) 14.8 %; Mean Corpuscular Hemoglobin 29.6 pg (25.0-34.0); Mean Corpuscular Hgb Conc 32.7 g/dL (32.0-36.0); Mean Corpuscular Volume 90.5 fL (80.0-100.0); Mean Platelet Volume 9.7 fL (9.4-12.4); Monocytes # (auto) 1.47 K/uL (0.11-0.59); Monocytes % (auto) 12.4 %; Neutrophils % (auto) 69.9 %; Platelet Count 220 K/uL (130-400); RDW Coefficient of Variation 13.6 % (11.5-14.5); RDW Standard Deviation 45.5 fL (36.4-46.3); Red Blood Count 5.14 M/uL (4.70-6.10); White Blood Count 11.88 K/ul (4.8-10.8)
[2023-09-07 06:57] LABS: BUN Creatinine Ratio 16.5 (10-20); Creatinine Clr Calc Pharmacy 120.5 ml/min; Est GFR (African American) 112.1 ml/min; Est GFR (Non-African American) 96.7 ml/min; Potassium 3.9 mmol/L (3.5-5.1)
[2023-09-07] MEDS: ATORVASTATIN 40 MG TAB PO SCH (08:25)
[2023-09-07] MEDS: PANTOprazole 40 MG TAB PO SCH (08:25)
[2023-09-07] MEDS: ASPIRIN 81 MG ECTAB PO SCH (08:25)
[2023-09-07] MEDS: METOPROLOL SUCC 25MG EXT REL TAB PO SCH (08:26)
[2023-09-07] MEDS: ASCORBIC ACID 500 MG TAB PO SCH (08:26)
[2023-09-07] MEDS: amLODIPine BESYLATE 5 MG TAB PO SCH (08:26)
[2023-09-07] MEDS: TICAGRELOR 90 MG TAB PO SCH (08:27)
--- NOTE | 2023-09-07 13:59 | Discharge Summary ---
Date of Service September 07, 2023 Admission HPI Per Admitting Provider The patient is a 57-year-old male with a past medical history including hypertension, GERD, perineal abscess and obesity. After developing chest pains symptoms this morning, he thought the symptoms were more likely related to GERD, but as his symptoms persisted without relief with antacids, he called 911. Patient was given aspirin en route to the hospital. Principal Diagnosis Non-ST elevation NE, lateral wall Discharge Exam General-alert and oriented x3, no fevers, no chills HEENT-head atraumatic and normocephalic, pupils equal and reactive to light, extraocular muscles intact Neck-no lymphadenopathy or thyromegaly, trachea midline Chest-clear to auscultation percussion. No rales wheezing or rhonchi Cardiac-regular rate and rhythm, normal S1 and S2 Abdomen-normal bowel sounds, nontender, no hepatosplenomegaly Extremities-no cyanosis, clubbing, or edema Neuro-cranial nerves II through XII intact, motor and sensory function within normal limits, strength symmetrical, no focal deficits Psych-normal affect, normal mood Discharge Data Allergies Allergy/AdvReac Type Severity Reaction Status Date / Time No Known Allergies Allergy Verified 09/04/23 23:07 Consultations 09/05/23 00:31 ED Decision to Admit Stat 09/05/23 03:01 Consult Cardiology Routine Procedures Performed Operation Date: 09/06/23 11:15 Actual Procedures p Cineradiography w/Routine Exam - Bowen Donaldson MD s Cath, Left with Cors and Vent - Bowen Donaldson MD s Drug Eluting Stent SGl Vessel - Bowen Donaldson MD Ordered Studies 09/06/23 11:07 CL Cath Imgs for PACS use only Stat Hospital Course (1) Acute non-ST elevation myocardial infarction (NSTEMI): Lateral wall. He underwent left heart catheterization with PCI of the first obtuse marginal branch and ROE placement. He has been seen by cardiology today, September 07, and cleared for discharge. He will remain on aspirin, amlodipine, atorvastatin, metoprolol succinate, and Brilinta. (2) HTN (hypertension): Stable. Continue current medical management (3) Acid reflux: Stable. Treated with Protonix while hospitalized Plan Home today, September 07. Follow-up with PCP and cardiology as instructed. Total Time Total Time Spent Total Time Spent (In Minutes): 45 minutes Discharge Plan Discharge Items Patient Disposition: Home - Self-Care Reason For Visit: NSTEMI, ABORMAL EKG Discharge Diagnosis: Non-ST segment elevation lateral wall Activity: Resume your previous activity Activity Comment: Avoid overexertion Non-emergency contact: Primary Care Provider and Cell Feed Department Supervisor Call non-emergency contact if: you have any medication questions and your symptoms worsen Follow-up/Referrals: Agus Qureshi, PAGladysC [Primary Care Provider] - Diet: Regular and Heart Healthy Addtl Attending Provider Instructions: Take medications as instructed. Follow-up with cardiology and primary care provider as instructed. Pending Studies at Discharge: No Stand-Alone Forms: My [employer], Smoking Cessation Medications and DC Order Prescriptions: New atorvastatin 40 mg Tablet 80 mg PO QAM Qty: 30 0RF nitroglycerin [Nitrostat] 0.4 mg Tablet, Sublingual 0.4 mg sublingual Q5M PRN (Reason: chest pain) Qty: 25 0RF metoprolol succinate 25 mg Tablet Extended Release 24 Hr 25 mg PO QAM Qty: 3 0RF Brilinta 90 mg Tablet 90 mg PO BID Qty: 60 0RF aspirin 81 mg Tablet,Delayed Release (Dr/Ec) 81 mg PO QAM Qty: 0 0RF Continued biotin 10 mg Tablet 10 mg PO DAILY amlodipine 5 mg tablet 5 mg PO DAILY garlic 1,000 mg Capsule 1,000 mg PO DAILY ascorbic acid (vitamin C) [Vitamin C] 500 mg Tablet 500 mg PO DAILY omeprazole 20 mg capsule,delayed release(DR/EC) 20 mg PO DAILY Discharge Orders: Discharge Order (Routine); Ordered 09/07/23 Ordered By: Vadim King/Other Patient Handouts: Prediabetes, 5 Steps for Eating Healthier Admission Data Admit Date/Time: 09/05/23 01:03 Attending Provider: Vadim Florian Admit Provider: Koko Delgadillo Primary Care Provider: Agus Qureshi Other Providers: Koko Delgadillo; Hossein Ayon Coding Level of Care Code 46925 INP/OBS DISCH >30 MIN Diagnoses Acute non-ST elevation myocardial infarction (NSTEMI) I21.4 HTN (hypertension) I10 Acid reflux K21.9
--- NOTE | 2023-09-07 17:44 | Electrocardiogram Report ---
Test Reason : Blood Pressure : / mmHG Vent. Rate : 082 BPM Atrial Rate : 082 BPM P-R Int : 134 ms QRS Dur : 090 ms QT Int : 406 ms P-R-T Axes : 028 002 113 degrees QTc Int : 474 ms Normal sinus rhythm Nonspecific ST and T wave abnormality Abnormal ECG When compared with ECG of 04-SEP-2023 22:41, ST less depressed in Anterior leads T wave inversion no longer evident in Inferior leads T wave inversion no longer evident in Lateral leads Confirmed by Bowen Chambers ([id number]) on 09/07/2023 5:43:46 PM Referred By: REFERRED SELF Confirmed By:Trav Chambers
--- NOTE | 2023-09-07 22:00 | Cardiology Progress Note ---
Date of Service September 07, 2023 Assessment & Plan (1) CAD (coronary artery disease): Plan: 08/2023 ROE to proximal high OM1 2. Ischemic cardiomyopathyEF 40 to 45%, mid to distal lateral wall hypokinesia 3. Hypertension 4. Dyslipidemia 5. Mild aortic regurgitation. 6. GERD 7. Prior tobacco abuse Stable post PCI to OM1 yesterday No recurrent chest pain. Hemodynamically and electrically stable No access site complications. Post procedure labs stable From a cardiac standpoint okay with discharge today. Home on DAPT with aspirin, ticagrelor Continue home Toprol-XL. Transition amlodipine to ARB as an outpatient Continue current statin Follow-up with me in 2 weeks. Admission and Anticipated Discharge Date Admission Date: September 05, 2023 Subjective Feeling well today. Denies any recurrent chest pain. No shortness of breath. No other new concerns. Telemetry reviewedno events. Review of Systems Review of Systems: All systems reviewed & are unremarkable except as noted in HPI & below Physical Exam Physical Exam: General: Comfortable HEENT: Sclerae anicteric Lungs: Clear to auscultation bilaterally Cardiac: Regular rate and rhythm, no murmurs. Vascular: Right radial artery access site with no ecchymosis, hematoma. Distal pulse and sensation intact. Abdomen: Soft, nontender Extremities: Well perfused, no peripheral edema Neuro: Nonfocal Psych: Alert orient x3, normal affect and mood Results & Data Vital Signs (Past 12 Hours) Vital Signs Temp Pulse Pulse Resp BP BP Pulse Ox 09/07/23 14:03 99.0 F 60 84 21 108/72 127/82 98 09/07/23 11:12 99.0 F 60 21 108/72 98 O2 Del Method 09/07/23 14:03 09/07/23 11:12 Room Air PG Care Time/CCT Total # of Minutes Spent Total Time Spent with Patient: Total time spent is greater than 50% in coordination of care (as documented) at patient's floor/unit and/or counseling patient: Coding Level of Care Code 43451 SUB INP/OBS CARE 3/50MIN Diagnoses CAD (coronary artery disease) I25.10
== END 2023-09-07 15:00 | disposition home or self-care (01) | DRG 322 ==
LOC: EDSEX → ED 22:34 → SUATTDRO 09-05 01:03 → 2S 09-05 01:03